=== PATIENT | male | born 1955 | race Caucasian/White ===

== ENCOUNTER 2016-07-07 06:46 | Day surgery (SDC) | payer OTHER ==
--- NOTE | ~2016-07-07 | OP ---
Record Of Operation [facility] [address] [place]. [address] NAME: MERI SOLIS : 59 STATUS : REG [facility] PAT#: [id number] AGE: 60 ADM/REG DATE : 07/07/16 MR#: [id number] REPORT SERV DATE: 07/07/16 DICTATED BY: SALVATORE MATTHEW IV CALI DATE: 07/07/16 REPORT STATUS : Draft TRANSCRIBED BY: TEGAN DATE: 07/07/16 DATE OF PROCEDURE: 07/07/2016 BRONCHOSCOPY PROCEDURE NOTE PREOPERATIVE DIAGNOSIS: Chronic obstructive pulmonary disease with persistent infiltrates on the right lower lobe after several courses of antibiotics for pneumonia. Rule out atypical infection. POSTOPERATIVE DIAGNOSIS: Inflammatory cells with initial review of the brush, final pathology pending. PROCEDURE: Bronchoscopy with EBUS, BAL of the anterior segment of the right upper lobe with BAL of the anterior segment of the right lower lobe, brush in the right lower lobe, and transbronchial lung biopsy in the right lower lobe, sent for culture as well as for cytology. INDICATIONS: Persistent infiltrates despite several courses of antibiotics in the right lower lobe. CONTRAINDICATIONS: Relative contraindication is the patient has significant emphysematous change particularly in the upper lobes. CONSENT: The risks, benefits, and alternative evaluations were discussed with the patient. Possible complications reviewed to include air leak around the lung, bleeding, infection, low oxygen level, and even potentially . The patient agreed to procedure with the consent signed, and witnessed on the front of the chart. 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 Hemoglobin was 11.9. MASS SPEC: Salvatore Matthew M.D. METHOD: The patient was taken to the bronchoscopy suite of [facility] and prepared in usual manner. Anesthesiology was consulted to provide airway management as well as sedation. This was provided via an LMA airway. Once the patient was sedated and the airway was secured, the bronchoscope was advanced through the LMA without difficulty. The tube sat appropriately on the vocal cords and epiglottis. A total of 22 mL of 2% lidocaine solution was used throughout the procedure to provide airway anesthesia. Once the cords were anesthetized, the bronchoscope was advanced through the vocal cord without difficulty. There was significant thick kim and white secretions throughout all airways. Airways were all slightly ectatic with bronchial pits. There was an anatomic variant of an indentation and almost a false airway in the medial right mainstem bronchus that had a blind end, but did have some bronchial pits. The airway mucosa otherwise appeared to be normal. Anatomy was normal with all airways patent out beyond the fourth generation bronchi. Once inspection had been performed, the bronchoscope was wedged into the anterior segment of the Record Of Operation [place] [id number] [place]. [address] NAME: MERI SOLIS : 59 STATUS : REG [facility] PAT#: [id number] AGE: 60 ADM/REG DATE : 07/07/16 MR#: [id number] REPORT SERV DATE: 07/07/16 DICTATED BY: SALVATORE MATTHEW IV DATE: 07/07/16 REPORT STATUS : Draft TRANSCRIBED BY: TEGAN DATE: 07/07/16 right upper lobe and a BAL was performed. A total of 180 mL was placed into the airway with a return of approximately 50 mL, which were sent for cytology as well as for culture. At this time, the bronchoscope was then advanced into the right lower lobe anterior segment bronchus. There were two main subsegments. Radial EBUS probe was advanced into both subsegments, both demonstrating abnormal lung parenchyma. A working port was then advanced into each individual subsegment and used to stabilize the airway for procedures. First a brush was performed into the more anterior of the anterior subsegment of the right lower lobe. This was sent for cytology. A total of four biopsies were then obtained, one for culture and three for cytology. A mini BAL was then performed at the conclusion before the working port was removed. The working port was then advanced into the other subsegment of the anterior segment of the right lower lobe. Again, brush was then performed. Four biopsies were obtained, two for culture and two for cytology. All procedures were performed under fluoroscopic guidance. Review of the brush by Pathology demonstrated inflammatory material with no malignant cells noted. It was felt that adequate sampling had been obtained. A micro BAL was performed in the other subsegment as well and then a macro BAL was performed into the anterior segment of the right lower lobe. This was again sent for culture as well as cytology. A fluoroscopy was then used to visualize the right hemithorax with no evidence for a pneumothorax. The patient will be sent to recovery. They will be notified of the results of the study. I updated the family. LENI/TEGAN Salvatore Matthew IV, M.D. / [id number] CC: Frantz Taylor IV, M.D.
[~2016-07-07 06:46] MED LIST: ANOROELLIPTA INH; BIAXIN5 PO; P20 PO; T PO; VENTOLIN HFA INH
[2016-07-07 07:15] LABS: HEMATOCRIT 35.2 % (40.0-51.0); HEMOGLOBIN 11.9 g/dL (13.6-17.8)
== END 2016-07-07 23:59 | disposition home or self-care (01) ==
LOC: DMU 06:46
PROVIDERS: Internal Medicine Critical Care Medicine
PROC: BB4CZZZ Ultrasonography of Mediastinum (ICD-10-PCS; 2016-07-07)
PROC: 0B9C8ZX Drainage of Right Upper Lung Lobe, Via Natural or Artificial Opening Endoscopic, Diagnostic (ICD-10-PCS; principal; 2016-07-07 08:30)
PROC: 0B9F8ZX Drainage of Right Lower Lung Lobe, Via Natural or Artificial Opening Endoscopic, Diagnostic (ICD-10-PCS; 2016-07-07 08:30)
PROC: 0B9F8ZX Drainage of Right Lower Lung Lobe, Via Natural or Artificial Opening Endoscopic, Diagnostic (ICD-10-PCS; 2016-07-07 08:30)
PROC: 0BBF8ZX Excision of Right Lower Lung Lobe, Via Natural or Artificial Opening Endoscopic, Diagnostic (ICD-10-PCS; 2016-07-07 08:30)
DX: S27.301A Unspecified injury of lung, unilateral, initial encounter (principal); X58.XXXA Exposure to other specified factors, initial encounter; J84.89 Other specified interstitial pulmonary diseases; J18.9 Pneumonia, unspecified organism; J44.9 Chronic obstructive pulmonary disease, unspecified; D64.9 Anemia, unspecified; F41.9 Anxiety disorder, unspecified; F17.210 Nicotine dependence, cigarettes, uncomplicated; Z90.49 Acquired absence of other specified parts of digestive tract; Z98.890 Other specified postprocedural states; Z90.79 Acquired absence of other genital organ(s); Z82.61 Family history of arthritis; Z82.5 Family history of asthma and other chronic lower respiratory diseases; Z81.8 Family history of other mental and behavioral disorders; Z80.9 Family history of malignant neoplasm, unspecified; Z82.49 Family history of ischemic heart disease and other diseases of the circulatory system; Z88.0 Allergy status to penicillin; Z88.2 Allergy status to sulfonamides; Z79.2 Long term (current) use of antibiotics; Z79.52 Long term (current) use of systemic steroids; Z79.899 Other long term (current) drug therapy
CPT/HCPCS: 71010; 85014; 85018; 87015; 87070; 87102; 87116; 87205; 88112; 88305; 88333; 93005; A9270-GY; J1170; J2250; J2405; J3010